=== PATIENT | female | born 1965 | race Caucasian/White ===

== ENCOUNTER 2016-06-18 09:19 | Emergency (ER) | payer BC ==
[2016-06-18] MEDS ORDERED: TDaP 0.5 ML VIAL IM.VACC ONE (09:43)
[2016-06-18] MEDS ORDERED: LIDOCAINE 2% 20 ML ONE (10:19)
== END 2016-06-18 11:37 | disposition home or self-care (01) ==
LOC: ER 09:19
DX: S61.011A Laceration without foreign body of right thumb without damage to nail, initial encounter (principal)
CPT/HCPCS: 90471